=== PATIENT | male | born 1960 | race Caucasian/White ===

== ENCOUNTER → 2024-07-10 07:22 | Outpatient (REF) | payer OTHER, SELFPAY | LOC: RCS 07:22 | PROVIDERS: ATTENDING PHYSICIAN Internal Medicine; FAMILY PHYSICIAN Internal Medicine | DX: Z95.2 Presence of prosthetic heart valve (principal); I42.0 Dilated cardiomyopathy | CPT/HCPCS: 93306; Q9950 ==

== ENCOUNTER → 2024-08-02 07:39 | Outpatient (REF) | payer OTHER, SELFPAY | LOC: DHCBC/DCA 07:39 | PROVIDERS: ATTENDING PHYSICIAN Internal Medicine; FAMILY PHYSICIAN Internal Medicine | DX: I99.8 Other disorder of circulatory system (principal); Z95.2 Presence of prosthetic heart valve; I42.0 Dilated cardiomyopathy; I48.0 Paroxysmal atrial fibrillation; I49.3 Ventricular premature depolarization; I10 Essential (primary) hypertension | CPT/HCPCS: 78452; 93017; A9500; J2785 ==

== ENCOUNTER 2024-08-26 08:07 | Day surgery (SDC) | payer OTHER, SELFPAY ==
--- NOTE | 2024-08-12 09:07 | HPS.HSE ---
Family Physician
-
Family Physician: NOT KNOW UNKNOWN - PT DOES
Chief Complaint
-
Status post mechanical aortic valve replacement. Dilated cardiomyopathy. Abnormal stress test.
History of Present Illness
The patient is a 63 year old male with a history of severe aortic regurgitation who underwent a [place] mechanical aortic valve replacement in 1993. He typically follows Dr. Brian Paulson yearly for this in addition to his history of
hypertension, hyperlipidemia, paroxysmal atrial fibrillation, and PVCs. At his last office visit, Dr. Paulson recommended he proceed with an echocardiogram to monitor his overall cardiac function. Unfortunately, his echocardiogram would reveal a
moderately dilated left ventricle and a left ventricular ejection fraction of 25-30%. His ejection fraction was previously 50-55% on his echocardiogram in 2019. A follow-up nuclear stress test would also prove to be abnormal, revealing a
predominantly fixed defect with mild steven-infarct ischemia involving the inferior wall (consistent with a RCA territory infarct) and a severely reduced ejection fraction of 26%. It is advised he proceed with a left cardiac catheterization at this
time for further assessment. He denies any current complaints today such as chest pain, shortness of breath at rest, nausea, vomiting, diarrhea, lightheadedness, dizziness, cough, sore throat, or fever.
Medical History
Past Medical History
Past Medical History: Reports Other
Additional Past Medical History:
1. Severe aortic regurgitation, status post mechanical aortic valve replacement 1993; on chronic Warfarin.
2. Dilated cardiomyopathy, reduced ejection fraction per echocardiogram 06/2024.
3. Abnormal stress test.
4. Paroxysmal atrial fibrillation, pharmacological therapy with Digoxin and oral anticoagulation with Warfarin.
5. Left bundle branch block.
6. PVCs.
7. Hypertension.
8. Hypercholesterolemia.
9. Mild mitral regurgitation.
10. Mild tricuspid regurgitation.
11. Colon polyps.
12. Diverticulosis.
13. Hemorrhoids.
14. Right garcia hematoma, status post surgical debridement 1999.
15. Gout.
16. Family history of Gila's disease.
Past Surgical History: Reports Other
Additional Past Surgical History:
1. [employer] mechanical aortic valve replacement.
2. Cardiac catheterization.
3. Right garcia hematoma debridement.
4. Childhood hernia repair.
5. Colonoscopy.
Social History
Tobacco: Non-smoker
Alcohol: Occasional (1-2 times per week.)
Personal:
Living: Other (He lives in a 2 story home with his and 2 children who live there part-time. )
Family History
Family History: Not pertinent
Allergies / Home Medications
Allergy/Medication List:
Home medications:
1. Atorvastatin 40 mg p.o. daily.
2. Digoxin 250 mcg p.o. daily.
3. Jardiance 10 mg p.o. daily.
4. Enalapril 2.5 mg p.o. daily.
5. Multivitamin 1 tablet p.o. daily.
6. Warfarin 7.5 mg p.o. Tuesdays and .
7. Warfarin 5 mg p.o. Sundays, Mondays, Wednesdays, Fridays, and Saturdays.
Allergies: No known allergies.
Review of Systems
-
A 12 point ROS was completed and negative except as noted: Yes
Physical Exam
Vital Signs
Blood pressure 136/86. Heart rate 61. Respirations 18. Pulse ox 99% on room air.
Height 5 feet, 11 inches. Weight 93.7 kg. BMI 28.8.
Physical Exam
General: Well Developed, Well Nourished and No Apparent Distress
HEENT: NormoCephalic, Moist mucous membranes and Atraumatic
Respiratory: Clear
Cardiac: Regular Rhythm (with occasional ectopy. Mechanical S1/S2. Soft 2/6 systolic murmur. )
GI: Soft, Non Tender and Non Distended
Musculoskeletal: Normal Gait & Station
Skin: Warm and Dry
Neuro: AO x 3 and Nonfocal/grossly intact
Laboratory Results
-
DIAGNOSTIC STUDIES as of 08/12/2024: White blood cell count 5.6. Hemoglobin 15.4. Platelet count 194,000. Sodium 135. Potassium 4.3. BUN 23. Creatinine 1.1. Glucose 118. Calcium 9.8. AST 30. ALT 26. Albumin 4.4.
EKG 08/12/2024: Sinus rhythm with sinus arrhythmia with occasional PVCs. Left axis deviation. Left bundle branch block.
Nuclear stress test 08/02/2024: Predominantly fixed defect with mild steven-infarct ischemia involving the inferior wall consistent with RCA territory infarct. Systolic function is severely reduced. The ejection fraction is 26%. Stress Risk is high
risk study (>3% [place] or /year) severely reduced ejection fraction.
Echocardiogram 07/10/2024: Left ventricle is moderately dilated. Severely reduced left ventricular systolic function. Left ventricular ejection fraction is 25-30%. Global hypokinesis. Well seated, mechanical aortic valve replacement. Peak/mean
gradients across the aortic valve are 19/10 mmHg respectively. No aortic regurgitation is seen. Compared to 05/29/20: left ventricle is now dilated. His ejection fraction has declined from 50-55% to 25-30%. Mean mechanical AVR gradient has decreased
from 18 mmHg to 10 mmHg. Contrast was not used on prior study.
Impression/Plan
-
IMPRESSION/PLAN:
1. Status post mechanical aortic valve replacement, dilated cardiomyopathy, and abnormal stress test: The patient is in need of a left cardiac catheterization with Dr. Marko Fang on 08/26/2024. The benefits and risks of the procedure have been
explained to the patient. The patient understands these risks and wishes to proceed. He is aware to hold his Warfarin 3 days prior to his catheterization. He will be started on Lovenox bridging once his Warfarin is held.
[2024-08-12 09:25] VITALS: BMI 28.8
[2024-08-12 09:59] LABS: % Basophils 0.7 % (0-2); % Eosinophils 2.7 % (0-6); % Immature Granulocytes 0.2 % (0-0.5); % Monocytes 7.5 % (1.7-9.3); % Neutrophils 66.9 % (42.2-75.2); Absolute Eosinophils 0.2 10^3/uL (0-0.7); Absolute Lymphocytes 1.2 10^3/uL (1.2-3.4); Absolute Monocytes 0.4 10^3/uL (0.1-0.6); Absolute Neutrophils 3.8 10^3/uL (1.4-6.5); Hematocrit 42.4 % (39.0-52.0); Hemoglobin 15.4 g/dL (13.0-18.0); Mean Corp Hgb Conc. 36.3 g/dL (33.0-37.0); Mean Corpuscular Hgb 32.8 pg (27.0-31.0); Mean Corpuscular Volume 90.2 fL (80.0-94.0); Mean Platelet Volume 10.2 fL (7.4-10.4); Nucleated Red Blood Cells % 0 % (-); Platelet Count 194 10^3/uL (130-400); Red Cell Dist. Width 12.5 % (11.5-14.5); White Blood Cell Count 5.6 10^3/uL (4.8-10.8)
[2024-08-12 10:25] LABS: ALT (SGPT) 26 U/L (0-50); AST (SGOT) 30 U/L (17-59); Albumin 4.4 g/dl (3.5-5.0); Alkaline Phosphatase 41 U/L (38-126); Blood Urea Nitrogen 23 mg/dl (9-20); Calcium 9.8 mg/dl (8.4-10.2); Carbon Dioxide 29 mmol/L (22-30); Chloride 100 mmol/L (98-107); Estimated Creatinine Clearance 73 ml/min; Glucose 118 mg/dl (70-99); Potassium 4.3 mmol/L (3.5-5.1); Sodium 135 mmol/L (135-145); Total Protein 6.8 g/dl (6.3-8.2); eGFR > 60.00
[2024-08-26] VITALS (10 sets, daily range): BP systolic 125–144; BP diastolic 71–97; BMI 26.9
[2024-08-26] MEDS: LOW STRENGTH ASPIRIN 324 MG PO (08:25)
[2024-08-26 09:11] LABS: APTT 33.1 Sec (23.4-35.0); INR 1.02; PT 13.7 Sec (11.4-14.6)
--- NOTE | 2024-08-26 10:26 | ITS.CL.CATH ---
Collection Systems Consultant - Catheterization
Cardiac Catheterization
Procedure Report:
CARDIAC CATHETERIZATION REPORT
Date of Procedure: 08/26/2024
Referring: Brian Paulson M.D.
INDICATION: Mechanical aortic valve replacement, new systolic cardiomyopathy (LVEF = 25%), abnormal stress test (inferior mid to apical fixed defect).
PROCEDURE:
1. Coronary angiography
2. Cineangiography of the mechanical aortic valve and profile.
ACCESS:
6 Qatari right radial artery.
CATHETERS:
1. 5 Q[place]ari JR4.
2. 5 Q[place] JL 3.5.
HEMODYNAMIC DATA
Weight (kg): 106.5
AO (s/d/x, mmHg): 131/78/98
LV (s/x mmHg): Not obtained.
LEFT VENTRICULOGRAPHY: Not performed. Cineangiography was performed of the mechanical aortic valve and profile. The leaflets demonstrate adequate excursion to their appropriate, industry to find angles. There is no evidence of mall coaptation or
restricted movement.
CORONARY ANGIOGRAPHY
Dominance: Right.
Left Main: Normal size, bifurcating vessel. There is no coronary artery disease.
LAD: Normal size vessel giving rise to 2 significant diagonals. The second diagonal is a large vessel, paralleling the LAD and acting as a near dual LAD system. There is no coronary artery disease.
Ramus: Congenitally absent.
Circumflex: Large size, nondominant vessel giving rise to 1 obtuse marginal before terminating as a large left posterolateral branch. The obtuse marginal bifurcates into an upper and lower branch. The upper branch is a relatively small vessel.
The lower branch is a much larger vessel supplying the majority of the inferolateral wall. There is no coronary artery disease.
RCA: Large size, dominant vessel with an eccentric, anterior and upward facing origin. There is no coronary artery disease.
INTERVENTION(S)
None.
Closure Device: Vascular band.
Radiation (mGy): 491.37
DAP (cm2.Gy): 38.6959
Fluoroscopy time (minutes): 3.0
Sedation time (minutes): 20
CONCLUSIONS
1. Right dominant circulation with no coronary artery disease.
2. Mechanical aortic valve replacement with normal leaflet excursion and coaptation.
RECOMMENDATIONS:
1. Expectant management after cardiac catheterization via right radial approach.
2. Limited weight bearing on the right for one week.
3. Resume warfarin tonight with appropriate bridging until INR has returned to 2.5.
4. Guideline directed medical therapy as hemodynamics will tolerate.
5. Repeat echo 90 days after initiation of GDMT.
6. Stable for outpatient follow-up.
Copy to: Brian Paulson M.D., Karen Shultz M.D.
Marko Fang DO, FACC, FACP
[2024-08-26] MEDS: NSS 1000 IV (10:40)
== END 2024-08-26 13:30 | disposition home or self-care (01) ==
LOC: CATH 08:07
PROVIDERS: ATTENDING PHYSICIAN Internal Medicine Cardiovascular Disease; FAMILY PHYSICIAN Internal Medicine; OTHER PHYSICIAN Internal Medicine
DX: I08.3 Combined rheumatic disorders of mitral, aortic and tricuspid valves (principal); R94.39 Abnormal result of other cardiovascular function study; Z95.2 Presence of prosthetic heart valve; I42.0 Dilated cardiomyopathy; I48.0 Paroxysmal atrial fibrillation; I44.7 Left bundle-branch block, unspecified; I49.3 Ventricular premature depolarization; I10 Essential (primary) hypertension; E78.00 Pure hypercholesterolemia, unspecified; Z79.01 Long term (current) use of anticoagulants; Z79.84 Long term (current) use of oral hypoglycemic drugs
CPT/HCPCS: 76120; 80053; 85025; 85610; 85730; 93005; 93454; C1894; Q9967

== ENCOUNTER → 2024-08-29 08:56 | Outpatient (REF) | payer OTHER, SELFPAY ==
[2024-08-29 10:34] LABS: INR 1.39; PT 17.6 Sec (11.4-14.6)
== END ==
LOC: REG 08:56
PROVIDERS: ATTENDING PHYSICIAN Internal Medicine Cardiovascular Disease; FAMILY PHYSICIAN Internal Medicine; REFERRING PHYSICIAN Internal Medicine
DX: Z95.2 Presence of prosthetic heart valve (principal)
CPT/HCPCS: 36415; 85610

== ENCOUNTER → 2024-09-02 11:35 | Outpatient (REF) | payer OTHER, SELFPAY ==
[2024-09-02 12:48] LABS: PT 21.1 Sec (11.4-14.6)
== END ==
LOC: REG 11:35
PROVIDERS: ATTENDING PHYSICIAN Internal Medicine Cardiovascular Disease
DX: Z95.2 Presence of prosthetic heart valve (principal)
CPT/HCPCS: 36415; 85610

== ENCOUNTER → 2024-09-04 08:53 | Outpatient (REF) | payer OTHER, SELFPAY ==
[2024-09-04 10:50] LABS: INR 2.57
== END ==
LOC: REG 08:53
PROVIDERS: ATTENDING PHYSICIAN Internal Medicine; FAMILY PHYSICIAN Internal Medicine
DX: Z95.2 Presence of prosthetic heart valve (principal); I48.0 Paroxysmal atrial fibrillation
CPT/HCPCS: 36415; 85610

== ENCOUNTER → 2024-12-05 08:24 | Outpatient (REF) | payer OTHER, SELFPAY | LOC: RCS 08:24 | PROVIDERS: ATTENDING PHYSICIAN Internal Medicine; FAMILY PHYSICIAN Internal Medicine | DX: Z95.2 Presence of prosthetic heart valve (principal); I50.20 Unspecified systolic (congestive) heart failure; I42.0 Dilated cardiomyopathy | CPT/HCPCS: 93307; Q9957 ==

== ENCOUNTER 2025-01-04 15:44 | Emergency (ER) | payer OTHER, SELFPAY ==
[2025-01-04 15:50] VITALS: BP 119/70
[2025-01-04 16:17] LABS: % Basophils 0.6 % (0-2); % Eosinophils 1.3 % (0-6); % Immature Granulocytes 0.3 % (0-0.5); % Lymphocytes 13.6 % (20.5-51.1); % Monocytes 5.8 % (1.7-9.3); % Neutrophils 78.4 % (42.2-75.2); Absolute Eosinophils 0.1 10^3/uL (0-0.7); Absolute Lymphocytes 0.9 10^3/uL (1.2-3.4); Absolute Monocytes 0.4 10^3/uL (0.1-0.6); Hematocrit 41.7 % (39.0-52.0); Hemoglobin 15.1 g/dL (13.0-18.0); Mean Corp Hgb Conc. 36.2 g/dL (33.0-37.0); Mean Corpuscular Hgb 32.9 pg (27.0-31.0); Mean Corpuscular Volume 90.8 fL (80.0-94.0); Mean Platelet Volume 10.5 fL (7.4-10.4); Nucleated Red Blood Cells % 0 % (-); Platelet Count 192 10^3/uL (130-400); Red Blood Cell Count 4.59 10^6/uL (4.70-6.10); Red Cell Dist. Width 12.8 % (11.5-14.5); White Blood Cell Count 6.4 10^3/uL (4.8-10.8)
[2025-01-04 16:27] LABS: INR 2.07; PT 23.4 Sec (11.4-14.6)
[2025-01-04 16:38] LABS: ALT (SGPT) 22 U/L (0-50); AST (SGOT) 27 U/L (17-59); Albumin 4.6 g/dl (3.5-5.0); Alkaline Phosphatase 47 U/L (38-126); Blood Urea Nitrogen 21 mg/dl (9-20); Calcium 9.6 mg/dl (8.4-10.2); Carbon Dioxide 25 mmol/L (22-30); Chloride 107 mmol/L (98-107); Glucose 112 mg/dl (70-99); Potassium 4.9 mmol/L (3.5-5.1); Sodium 138 mmol/L (135-145); Total Bilirubin 1.2 mg/dl (0.2-1.3); Total Protein 6.9 g/dl (6.3-8.2); eGFR > 60.00
[2025-01-04 16:43] LABS: Troponin I 0.023 ng/ml
--- NOTE | 2025-01-04 19:46 | ED.GENMED ---
History of Present Illness
General
Chief Complaint: Fainting Sensation
Source: patient and spouse
Exam Limitations: none
Time Seen by Provider: 01/04/25 18:06
Nursing documentation reviewed up to this point in time: agreed with
History of Present Illness
History of Present Illness:
64-year-old male presenting to the emergency department today with concerns of laceration to the right wrist. Laceration occurred due to a piece of wood when he was doing woodwork. Initially went to urgent care. He was there for laceration
closure today he denies any complications from the laceration but felt lightheaded when the laceration was being assessed felt some dizziness for a few seconds his blood pressure was somewhat low there EMS was called he was transported to the ER.
He claims his symptoms were very short-lived and are no longer present. Denies any chest pain shortness of breath or additional concerns otherwise.
Review of Systems
Review of Systems
Allergies reviewed?: Yes
All Other Systems: ROS reviewed and negative except as documented in HPI and ROS
Phy Exam
Physical Exam
Physical Exam:
GENERAL: Alert , in no apparent distress
EYE: pupils equal and reactive
NECK: Supple, no significant adenopathy.
ENT: o/p clr, mmm.
CARDIAC: Regular rate and rhythm .
LUNGS: Clear breath sounds bilaterally, no acute respiratory distress, no wheezes/rales/rhonchi
ABDOMEN: Soft, without focal tenderness, no r/g, no cvat
NEUROLOGICAL: Alert and oriented, no focal neuro deficits
SKIN: 4 cm laceration to the right wrist shaped like an M roughly 4 cm in total length subcutaneous in length warm and dry, skin intact.
MUSCULOSKELETAL: No edema, well perfused.
PSYCH: Normal and appropriate interaction.
Course
Orders/Labs/Results
Orders:
Orders
01/04/25 15:56
Electrocardiogram (*1) Urgent
Reason for Study: Chest Pain
EKG- Treatment ONCE
01/04/25 16:08
Complete Blood Count/With Diff Urgent
Comprehensive Metabolic Panel Urgent
Troponin I Urgent
01/04/25 16:09
Prothrombin Time Urgent
Abnormal Lab Results
01/04/25 01/04/25
16:08 16:09
RBC 4.59 L 10^6/uL
(4.70-6.10)
MCH 32.9 H pg
(27.0-31.0)
MPV 10.5 H fL
(7.4-10.4)
Absolute Lymphs (auto) 0.9 L 10^3/uL
(1.2-3.4)
Neutrophils % 78.4 H %
(42.2-75.2)
Lymphocytes % 13.6 L %
(20.5-51.1)
PT 23.4 H Sec
(11.4-14.6)
BUN 21 H mg/dl
(9-20)
Glucose 112 H mg/dl
(70-99)
01/04/25 16:08
01/04/25 16:08
Vital Signs
Initial and Last Documented VS:
Initial Vital Signs
Temp Pulse Resp BP Pulse Ox
98.2 F 59 16 119/70 100
01/04/25 15:50 01/04/25 15:50 01/04/25 15:50 01/04/25 15:50 01/04/25 15:50
Last Documented Vital Signs
Temp Pulse Resp BP Pulse Ox
98.2 F 59 16 119/70 100
01/04/25 15:50 01/04/25 15:50 01/04/25 15:50 01/04/25 15:50 01/04/25 18:30
Procedures
Laceration Closure
Right Anterior Wrist:
Status of Wound: clean
Size of Wound in cm: 4
Description of Wound Edges: sharp
Preparation: cleaned with saline
Anesthesia: 1% Lidocaine with epi
Revision/Debridement: routine- no revision and irrigate-direct pressure
Wound exploration: explored to base- no FB
Type of Closure: single layer closure and interrupted sutures
Skin Closure Material: 4-0 nylon
Number of sutures: 6
MDM/Problems Addressed
MDM/Problems Addressed:
64-year-old male presenting with concerns of a laceration to his right wrist also had an episode of dizziness and low blood pressure at the urgent care. It was very short-lived and while the laceration was getting assessed. Likely consistent with
vasovagal event. Patient well-appearing here no distress with normal vital signs normal labs. INR is 2.07 he was notified of this. Otherwise he was started on antibiotics due to the laceration being relatively deep. No signs of foreign body.
Otherwise stable for discharge. Return precautions given.
*Critical Care Note
Total Time (30-74mins, 75-104mins- exclusive of procedures): Not Applicable
ED Attending Note
-
Portions of this chart may have been created with voice recognition software.� Occasional wrong word or��sound alike� substitutions may have occurred due to the inherent limitations of voice recognition software.
Discharge Plan
Departure
Patient Disposition: Home (Routine Discharge)
Date of Disposition: 01/04/25
Time of Disposition: 19:48
Patient with high blood pressure during this ER visit?: No
Condition: Good
Covid-19: Not Applicable
Discharge Problem:
Laceration of wrist, right
Instructions: Stitches - ED discharge instructions
Prescriptions:
New
cephalexin 500 mg capsule
500 mg PO TID 3 Days Qty: 9 0RF
No Action
atorvastatin 40 MG tablet
40 mg PO DAILY
warfarin [Jantoven] 7.5 MG tablet
7.5 mg PO TUTHSA
warfarin [Jantoven] 5 MG tablet
5 mg PO SUMOWEFR
multivitamin Tablet
1 tab PO DAILY
digoxin 250 mcg (0.25 mg) Tablet
250 mcg PO DAILY
Jardiance 10 mg Tablet
10 mg PO DAILY
Entresto 24-26 mg Tablet
1 tab PO BID
Referrals:
Karen Shultz MD [Family Provider] -
Activity Restrictions/Additional Instructions:
You came to the emergency department today with concerns of a laceration to your right wrist and an episode of dizziness at the urgent care. Here you have a reassuring assessment. This was likely a vasovagal event. Your laceration was closed with
6 stitches please follow-up closely in 10 to 12 days for suture removal. Otherwise keep the area clean covered and take lactic antibiotics. Return for any worsening, new or concerning symptoms.
Interventions
Interventions:
*Risk Screen - Suicide Last Done: 01/04/25 15:50
*General Assessment Last Done: 01/04/25 18:23
*Neglect/Abuse Screening Last Done: 01/04/25 15:50
*ED- Fall Risk Assessment Last Done: 01/04/25 18:23
*ED COVID-19 Vaccine History Last Done: 01/04/25 18:23
ED- Cardiac Assessment Last Done: 01/04/25 18:28
ED- Neurological Assessment Last Done: 01/04/25 18:28
Discharge Date and Time
Print Language: SYRIAC
[2025-01-04] MEDS: KEFLEX 500 MG PO (20:01)
[2025-01-04 20:03] VITALS: BP 128/74
== END 2025-01-04 20:03 | disposition home or self-care (01) ==
LOC: EMR 15:44
PROVIDERS: Student in an Organized Health Care Education/Training Program; EMERGENCY PHYSICIAN Student in an Organized Health Care Education/Training Program; FAMILY PHYSICIAN Internal Medicine
DX: S61.511A Laceration without foreign body of right wrist, initial encounter (principal); R42 Dizziness and giddiness; X58.XXXA Exposure to other specified factors, initial encounter; I38 Endocarditis, valve unspecified
CPT/HCPCS: 12032; 99283; 80053; 84484; 85025; 85610; 93005

== ENCOUNTER 2025-01-10 06:28 | Day surgery (SDC) | payer OTHER, SELFPAY ==
[2025-01-03 09:04] VITALS: BMI 27.9
[2025-01-03 09:27] LABS: % Basophils 0.6 % (0-2); % Eosinophils 2.4 % (0-6); % Immature Granulocytes 0.4 % (0-0.5); % Lymphocytes 24.3 % (20.5-51.1); % Monocytes 7.1 % (1.7-9.3); % Neutrophils 65.2 % (42.2-75.2); Absolute Eosinophils 0.1 10^3/uL (0-0.7); Absolute Lymphocytes 1.2 10^3/uL (1.2-3.4); Absolute Monocytes 0.4 10^3/uL (0.1-0.6); Absolute Neutrophils 3.3 10^3/uL (1.4-6.5); Hemoglobin 15.5 g/dL (13.0-18.0); Mean Corp Hgb Conc. 36.9 g/dL (33.0-37.0); Mean Corpuscular Hgb 33.2 pg (27.0-31.0); Mean Corpuscular Volume 89.9 fL (80.0-94.0); Mean Platelet Volume 10.5 fL (7.4-10.4); Nucleated Red Blood Cells % 0 % (-); Platelet Count 202 10^3/uL (130-400); Red Blood Cell Count 4.67 10^6/uL (4.70-6.10); Red Cell Dist. Width 12.9 % (11.5-14.5); White Blood Cell Count 5.1 10^3/uL (4.8-10.8)
[2025-01-03 09:43] LABS: ALT (SGPT) 21 U/L (0-50); AST (SGOT) 23 U/L (17-59); Albumin 4.5 g/dl (3.5-5.0); Alkaline Phosphatase 40 U/L (38-126); Blood Urea Nitrogen 27 mg/dl (9-20); Calcium 9.4 mg/dl (8.4-10.2); Carbon Dioxide 27 mmol/L (22-30); Chloride 110 mmol/L (98-107); Estimated Creatinine Clearance 74 ml/min; Glucose 142 mg/dl (70-99); Potassium 4.6 mmol/L (3.5-5.1); Sodium 139 mmol/L (135-145); Total Bilirubin 0.9 mg/dl (0.2-1.3); Total Protein 6.6 g/dl (6.3-8.2); eGFR > 60.00
[2025-01-10] VITALS (12 sets, daily range): BP systolic 108–149; BP diastolic 68–89; BMI 27.7
--- NOTE | 2025-01-10 07:50 | W.ICD.CONTRA ---
Post ICD/LUBRICATION TECHNICIAN-D
-
History of NC?: No
LV Function
Left ventricular function study result?: Ejection Fraction </= 35%
ACEI/ARB/ARNI
Patient already on ACEI/ARB/ARNI: Yes
Beta-Giovanny
Patient already on Beta Giovanny: No
Beta Giovanny Contraindication: Symptomatic Bradycardia
[2025-01-10 07:52] LABS: INR 2.91; PT 30.8 Sec (11.4-14.6)
--- NOTE | 2025-01-10 11:09 | ITS.CL.ICD ---
Addendum entered and electronically signed by Josse Corado MD 01/10/25 13:50:
Correction:
The 4298-88cm; Serial# [id number] left ventricular lead was not implanted. It was removed and an active fixation lead was used as distal in the vein the thresholds were high.
The implanted LV lead is:
Left Ventricular Lead: Medtronic; Model# 4798-88cm; Serial# [id number]. The LV tip terminated in a basal to mid lateral location.
Original Note:
Balance Wheel Screw Hole Tapper - ICD
Implantable Cardioverter Defibrillator
Procedure Report:
Date of Procedure: January 10, 2025.
Procedures: Primary prevention ICD implant.
Indication: Primary prevention ICD. NYHA heart failure class: II for 6 months despite maximally tolerated medical therapy. LVEF 25-30%. QRS duration 152 ms with a LBBB. No history of VT/VF . Nonischemic dilated cardiomyopathy. No history of prior
VT. Life expectancy exceeds 1 year. A biventricular disease was chosen because of his LBBB. Shared decision making was employed as an outpatient before the patient presented today for an ICD.
Performing physician: Josse Corado MD, [facility].
Implants:
Pulse Generator: Medtronic; Model# [id number]; Serial# [id number].
Atrial Lead: Medtronic: Model# 5076-52cm; Serial# [id number].
Right Ventricular Lead: Medtronic; Model# [id number]; Serial# [id number].
Left Ventricular Lead: Medtronic; Model# 4298-88cm; Serial# [id number].
Technique: A time out was performed. A left upper extremity venogram demonstrated patent left cephalic, axillary, and subclavian veins. The procedure site was identified. The patient was anesthetized by the anesthesia service. Preoperative cefazolin
was administered. The patient was prepped and draped in the usual fashion. Local anesthetic was applied to the left prepectoral subcutaneous tissue. A 3 inch incision was made along the left deltopectoral groove. Dissection was carried to the
fascia. The left cephalic vein was easily isolated and proximal and distal control with 2-0 Vicryl suture. Using a micropuncture needle to access the cephalic vein under direct visualization a wire was advanced into the central circulation. A 7 Fr
introducer was placed to allow two additional 0.35 J wires to be advanced and a retained guidewire technique was employed. The leads were introduced with hemostatic peel away introducer sheaths. The ventricular lead was placed at the right
ventricular apical septum. The ventricular lead was secured to the pectoralis muscle and fascia with two 0-silk sutures. The atrial lead was then placed in the lateral right atrial because the appendage had small P waves with a sizable far field R
wave. The atrial lead was secured to the pectoralis muscle and fascia with two 0-silk sutures. The coronary sinus was accessed with the aid of the Heliatek Sure Valve [id number] system with an EH curve without difficulty. Coronary sinus venography
revealed a lateral vein of medium caliber.. The left ventricular lead was placed in the the lateral vein with the aid of an inner cannula. The branch vein was mapped extensively and an active fixation lead was then deployed and fixated in the
location without diaphragm and with several locations that would capture. The LV lead was secured to the pectoralis muscle and fascia. 8 volt pacing did not capture the diaphragm from any lead (in the final LV lead location). A subcutaneous pocket
was created with blunt dissection cautery. Hemostasis was excellent and achieved with Bovie cautery as needed. The leads were appropriately attached to the device. The pocket was irrigated with antibiotic solution. The device and leads were placed
in the pocket. A [employer], TYRX Absorbable Antibacterial Envelope was placed in the pocket. The incision was closed in three layers with absorbable suture. Steri-strips and a a silver impregnated dressing were placed. A pressure dressing was placed
as the procedure was performed on uninterrupted warfarin therapy. Estimated blood loss was 25 ml. There were no complications. Fluoroscopy time: 7.8 minutes and DAP 11.3 GyCM2. The device was then interrogated after skin closure. Total IV contrast
15 mL.
System Analysis:
RA lead: P: 5 mV; Threshold: 0.5 V @ 0.4 ms; Impedance: 551 ohms.
RV lead: R: 13 mV; Threshold: 0.5 V @ 0.4 ms; Impedance: 399 ohms.
LV lead: R: 22 mV; Threshold: 2.25 V @ 0.4 ms; Impedance: 627 ohms.
Final Programming: Tachy: VT/VF:188 bpm; Adonay: DDDR 60-120 bpm.
Conclusion: Uncomplicated BiV ICD implant. The ICD system is MRI safe/conditional.
Recommendation: Routine post ICD care.
cc: Brian Paulson MD and Karen Shultz MD.
[2025-01-10] MEDS: ANCEF 5 IV (13:54)
--- NOTE | 2025-01-10 13:54 | W.PN.UPDATE ---
Update Note
Progress Note Update
Pt seen post Bi-V ICD implant. Left ACW w/aquacel and pressure dressing, no HT/bleeding, non tender. Pressure dressing to remain on until Monday morning, then remove pressure dressing and leave aquacel on underneath until incision check. Post EKG
AVpaced 60s. Post CXR w/stable lead position, no pneumothorax. Activity restrictions reviewed with patient and family, all questions asked. Procedure done on warfarin with INR 2.9 today, no changes at this time. Home later today if device site/tele
remain stable.
== END 2025-01-10 14:15 | disposition home or self-care (01) ==
LOC: CATH 06:28
PROVIDERS: ATTENDING PHYSICIAN Internal Medicine Cardiovascular Disease; FAMILY PHYSICIAN Internal Medicine; OTHER PHYSICIAN Internal Medicine
DX: I11.0 Hypertensive heart disease with heart failure (principal); I50.22 Chronic systolic (congestive) heart failure; I42.0 Dilated cardiomyopathy; I48.0 Paroxysmal atrial fibrillation; I44.7 Left bundle-branch block, unspecified; E78.5 Hyperlipidemia, unspecified; Z79.899 Other long term (current) drug therapy; Z95.1 Presence of aortocoronary bypass graft; Z95.2 Presence of prosthetic heart valve; Z79.84 Long term (current) use of oral hypoglycemic drugs; Z79.01 Long term (current) use of anticoagulants
CPT/HCPCS: 33249; 33225; 36415; 71045; 80053; 85025; 85610; 93005; C1769; C1777; C1882; C1887; C1892; C1898; C1900; Q9967